=== PATIENT | female | born 1950 | race Caucasian/White ===

== ENCOUNTER 2017-12-14 19:58 | Inpatient (IN) | payer MEDICARE, OTHER ==
--- NOTE | 2017-12-14 20:37 | ED ---
Respiratory - HPI Summary HPI Summary: A 67 y/o F presents to ED transferred from [facility] for SOB onset three days ago. Associated sx: fever, chills, diaphoresis, decreased oral intake , CHRISTIANSON, nonproductive cough, TIM. She took Excedrin which relieved the TIM. Denies CP. Aggravating factors: lying down. Pt has recently travelled back to [place] from [place] by plane. - History of Current Complaint Chief Complaint: EDShortnessOfBreath Stated Complaint: SOB Time Seen by Provider: 12/14/17 20:31 Hx Obtained From: Patient, Family/Police Specialist Onset/Duration: Lasting Days, Still Present Timing: Constant Initial Severity: Mild Current Severity: Mild Pain Intensity: 3 Character: Cough (Nonproductive), Dyspnea on Exertion Sputum Amount: None Aggravating Factor(s): Recumbent Position Alleviating Factor(s): OTC Medications - re: TIM Associated Signs and Symptoms: Fever, Chills, Diaphoresis, Dyspnea - CHRISTIANSON - Allergy/Home Medications Allergies/Adverse Reactions: Allergies Allergy/AdvReac Type Severity Reaction Status Date / Time penicillin G Allergy Unknown Unknown Verified 12/15/17 00:51 Reaction Details Home Medications: Home Medications NK [No Home Medications Reported] 12/14/17 [History Confirmed 12/14/17] PMH/Surg Hx/FS Hx/Imm Hx Previously Healthy: Yes Cardiovascular History: Denies: Hx Congestive Heart Failure, Hx Myocardial Infarction Sensory History: Denies: Hx Deafness Opthamlomology History: Denies: Hx Legally Blind EENT History: Denies: Hx Deafness Infectious Disease History: No Infectious Disease History: Denies: Traveled Outside the in Last 30 Days - Family History Known Family History: Negative: Cardiac Disease - Social History Occupation: Retired Lives: With Family Hx Tobacco Use: No Review of Systems Positive: Fever, Chills, Skin Diaphoresis, Other - pos: decreased oral intake Eyes: Negative ENT: Negative Negative: Chest Pain Positive: Shortness Of Breath, Cough - non-productive, Other - CHRISTIANSON Gastrointestinal: Negative Positive: no symptoms reported Musculoskeletal: Negative Skin: Negative Positive: Headache Psychological: Normal All Other Systems Reviewed And Are Negative: No Physical Exam - Summary Physical Exam Summary: Appearance: Alert, conversive, nontoxic appearing Skin: Warm, dry, no mottling, no rashes, no contusions HEENT: EOMI, PERRL, moist mucous membranes Neck: No masses on the neck, supple Respiratory: Clear to auscultation, breath sounds present, no rales, no rhonchi , no wheezes. Dyspneic during interview; pt completes full sentences then stops and takes extra breaths. Cardiovascular: RRR, pulses are symmetrical in both lower and upper extremities. Very faint rub. Abdomen: Soft, non-tender Bowel Sounds: Present Musculoskeletal: No CVA tenderness, no obvious deformity, moving all extremities in a grossly normal manner Neurological: A&Ox3, CN II-XII Intact, moving all extremities symmetrically Psychiatric: Normal affect and mood Triage Information Reviewed: Yes Vital Signs On Initial Exam: Initial Vitals Temp Pulse Resp BP Pulse Ox 98.0 F 69 22 121/73 98 12/14/17 20:05 12/14/17 20:05 12/14/17 20:05 12/14/17 20:05 12/14/17 20:05 Vital Signs Reviewed: Yes Diagnostics - Vital Signs Vital Signs Temp Pulse Resp BP Pulse Ox 12/14/17 20:05 98.0 F 69 22 121/73 98 - Laboratory Result Diagrams: 12/15/17 06:00 12/14/17 21:17 Lab Statement: Any lab studies that have been ordered have been reviewed, and results considered in the medical decision making process. - Radiology CXR Xray Interpretation: Positive (See Comments) - Cardiomegaly. No PNA. Radiology Interpretation Completed By: ED Physician - EKG 2048 Cardiac Rate: NL - 70bpm EKG Rhythm: Sinus Rhythm ST Segment: Non-Specific - II, III, aVF, V4-V6 EKG Interpretation: Inverted T-waves in V2, V3. No electrical alternans. Re-Evaluation - Re-Evaluation 1 Re-Evaluation Time: 21:00 Change: Unchanged Comment: Discussing possibility of transfer with pt and . Second Eval Re-Evaluation Time: 23:35 - Discussed the pending admission with the pt. She reports that she is still short of breath. Disposition - Course Course Of Treatment: A 67 y/o F presents to ED transferred from [facility] for SOB onset three days ago. Associated sx: fever, chills, diaphoresis , decreased oral intake, CHRISTIANSON, nonproductive cough, TIM. Pt will be signed out to Dr. Ruiz at shift change pending work-up, recommended for admission. - Differential Dx - Cardiopulmonary Differential Diagnoses - Cardiopulmonary: Acute Dyspnea - Diagnoses Provider Diagnoses: Dyspnea, Pericardial effusion - Physician Notifications Discussed Care Of Patient With: Deyvi Berry - hospitalist Time Discussed With Above Provider: 20:50 Instructed by Provider To: Other - Recommends transfer for possible percardial effusion. On futhur consult, approx 2100, hospitalist is agreeing to admit pt once full work-up is complete. Discharge - Sign-Out/Discharge Documenting (check all that apply): Sign-Out Patient Signing out patient TO: Sim Ruiz - Discharge Plan Condition: Stable Disposition: ADMITTED TO [facility] - Billing Disposition and Condition Condition: STABLE Disposition: Admitted to [facility] - Attestation Statements Document Initiated by Scribe: Yes Documenting Scribe: Blanca Michael Provider For Whom Scribe is Documenting (Include Credential): Dr Josiane Restrepo MD Scribe Attestation: Roscoe, Blanca Michael , scribed for Dr Josiane Restrepo MD on 12/15/17 at 0635. Scribe Documentation Reviewed: Yes Provider Attestation: The documentation as recorded by the scribBlanca peres accurately reflects the service I personally performed and the decisions made by , Dr Josiane Restrepo MD
[2017-12-14 21:38] LABS: ABS Basophils 0.1 10^3/ul (0-0.2); ABS Eosinophils 0 10^3/ul (0-0.6); ABS Lymphocytes 1.3 10^3/ul (1.0-4.8); ABS Neutrophils 8.5 10^3/ul (1.5-7.7); ABS Nucleated RBC 0 10^3/ul; Eosinophil % 0.3 % (0-6); Hematocrit 32 % (35-47); Hemoglobin 10.6 g/dl (12.0-16.0); Lymphocyte % 11.8 % (25-47); Mean Corpuscular HGB Conc 33 g/dl (31-36); Mean Corpuscular Hemoglobin 26 pg (27-31); Mean Corpuscular Volume 79 fL (80-97); Mean Platelet Volume 7.6 um3 (7.4-10.4); Nucleated Red Blood Cells % 0; Platelet Count 456 10^3/ul (150-450); Red Blood Count 4.03 10^6/ul (4.00-5.40); Red Cell Distribution Width 13 % (10.5-15); White Blood Count 10.9 10^3/ul (3.5-10.8)
[2017-12-14 21:57] LABS: EGFR Non-African American 110.6 (>60)
--- NOTE | 2017-12-14 23:34 | ED ---
Progress - Progress Note Progress Note: 22:00- Pt received from Dr. Josiane Peace MD due to pending workup. 22:48 - Discussed the care of the pt with Dr. Lizzy Villanueva, clinical program consultant who recommended admitting.Discussed the care of the pt with Dr. Berry who agreed to admit the pt to the ICU. The pt will be admitted with a final Dx of pericardial effusion and dyspnea. Re-Evaluation - Re-Evaluation 1 Re-Evaluation Time: 21:00 Change: Unchanged Comment: Discussing possibility of transfer with pt and . Second Eval Re-Evaluation Time: 23:35 - Discussed the pending admission with the pt. She reports that she is still short of breath. Course/Dx - Course Course Of Treatment: A 67 y/o F presents to ED transferred from [facility] for SOB onset three days ago. Associated sx: fever, chills, diaphoresis , decreased oral intake, CHRISTIANSON, nonproductive cough, TIM. Pt will be signed out to Dr. Ruiz at shift change pending work-up, recommended for admission. - Diagnoses Provider Diagnoses: Dyspnea, Pericardial effusion - Provider Notifications Discussed Care Of Patient With: Rich Ball - Wax Specialist Time Discussed With Above Provider: 20:50 Instructed by Provider To: Other - Recommends transfer for possible percardial effusion. On futhur consult, approx 2100, hospitalist is agreeing to admit pt once full work-up is complete. Discharge - Sign-Out/Discharge Documenting (check all that apply): Patient Departure - Admit - Discharge Plan Condition: Stable Disposition: ADMITTED TO [facility] Referrals: No Primary Care Phys,NOPCP [Primary Care Provider] - Care [facility] [Outside] - Billing Disposition and Condition Condition: STABLE Disposition: Admitted to [facility] - Attestation Statements Document Initiated by Scribe: Yes Documenting Scribe: Shantell Rodriguez Provider For Whom Denice is Documenting (Include Credential): Dr. Sim Ruiz MD Scribe Attestation: Shantell Malhotra scribed for Dr. Sim Ruiz MD on 12/15/17 at 0019. Scribe Documentation Reviewed: Yes Provider Attestation: The documentation as recorded by the Shantell driscoll [place] accurately reflects the service I personally performed and the decisions made by me, Dr. Sim Ruiz MD
[2017-12-15] MEDS ORDERED: Ketorolac INJ* 30 MG/ML 1 ML VIAL IV ONE (00:24)
--- NOTE | 2017-12-15 00:26 | HP ---
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 She returned from a trip to [facility] this month and was exposed to her who had a mild upper respiratory syndrome ~1 week ago. Starting last Saturday, she began having a drt cough with increased fatigue, exertional SOB, F/C, sweats, and decreased appetite. The only chest discomfort she has had has been associated with her cough, similarly a mild sore throat. She presented to [place] ED where a CTA chest was performed and ruled out pulmonary embolism , but incidentally identified a moderate pericardial effusion. Coincidentally, she had been evaluated in [place], [place] on 10/18/2017 for chest pain and a CTA chest at that time had no evidence of pericardial effusion. Her vitals are reasonable without hypotension, tachycardia, or hypoxia. She is moderately SOB with speaking or movement. She does have ~3.5cm JVD at 60 degrees. Findings were discussed with Ta Gray MD cardiology who will evaluate her in the AM. In the meantime, she will be given IVFs, anti-inflammatory medication, supplemental oxygen, & monitored closely in the ICU. She is not on blood thinners. 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 Father passed at 75 2nd lung CA. Sister passed at 47 2nd primary liver CA. Brother is alive at 62 w / HX TIA. ROS: as above, otherwise reviewed and all were negative vitals: Vital Signs Temp 36.7 C 12/14/17 20:05 Pulse 84 12/15/17 00:37 Resp 24 12/15/17 00:37 BP 127/71 12/15/17 00:37 Pulse Ox 97 12/15/17 00:37 Intake & Output 12/14/17 12/14/17 12/15/17 11:59 23:59 11:59 Weight 72.575 kg Constitutional: NAD, normally developed, overweight white female HEENM: atraumatic; sclera/conjunctiva: anicteric/clear; blephara: normal; auricles: normal; hearing: clinically intact; oropharynx: clear, mucosa moist Neck: soft tissue: no nuchal rigidity; thyroid: normal Pulmonary: clear to auscultation bilaterally, good aeration, no accessory muscle use CV: RR/RR, normal S1S2, no carotid bruit, ~3.5cm jugular venous distention at 60 degrees, 2+ B DP/PT, no edema Abdominal: soft, non-distended, non-tender, no rebound/guarding/rigidity, normoactive bowel sounds, no hepatosplenomegaly or masses, no costovertebral angle tenderness Musculoskeletal: general: grossly intact, non-tender Integumental: normal appearance and texture of exposed skin Psychiatric orientation: AA&O to PPS affect: mildly anxious, objectively mildly SOB mood: pleasant, cooperative eye contact: good content: reliable responses: mildly slowed 2nd SOB/dyspnea insight: good Testing: Lab Results 12/14/17 12/14/17 12/14/17 Range/Units 21:17 21:17 21:17 WBC 10.9 H (3.5-10.8) 10^3/ul RBC 4.03 (4.00-5.40) 10^6/ul Hgb 10.6 L (12.0-16.0) g/dl Hct 32 L (35-47) % MCV 79 L (80-97) fL MCH 26 L (27-31) pg MCHC 33 (31-36) g/dl RDW 13 (10.5-15) % Plt Count 456 H (150-450) 10^3/ul MPV 7.6 (7.4-10.4) um3 Neut % (Auto) 78.3 (38-83) % Lymph % (Auto) 11.8 L (25-47) % [place] % (Auto) 8.8 H (0-7) % Eos % (Auto) 0.3 (0-6) % Baso % (Auto) 0.8 (0-2) % Absolute Neuts (auto) 8.5 H (1.5-7.7) 10^3/ul Absolute Lymphs (auto) 1.3 (1.0-4.8) 10^3/ul Absolute Monos (auto) 1.0 H (0-0.8) 10^3/ul Absolute Eos (auto) 0 (0-0.6) 10^3/ul Absolute Basos (auto) 0.1 (0-0.2) 10^3/ul Absolute Nucleated RBC 0 10^3/ul Nucleated RBC % 0 ESR 109 H (0-40) mm/Hr Sodium 138 (135-145) mmol/L Potassium 3.4 L (3.5-5.0) mmol/L Chloride 102 (101-111) mmol/L Carbon Dioxide 27 (22-32) mmol/L Anion Gap 9 (2-11) mmol/L BUN 7 (6-24) mg/dL Creatinine 0.55 (0.51-0.95) mg/dL Est GFR ( Amer) 133.8 (>60) Est GFR (Non-Af Amer) 110.6 (>60) BUN/Creatinine Ratio 12.7 (8-20) Glucose 120 H (70-100) mg/dL Calcium 9.1 (8.6-10.3) mg/dL Magnesium 2.3 (1.9-2.7) mg/dL Total Bilirubin 0.70 (0.2-1.0) mg/dL AST 31 (13-39) U/L ALT 56 H (7-52) U/L Alkaline Phosphatase 190 H (34-104) U/L Troponin I 0.01 (<0.04) ng/mL C-Reactive Protein 130.69 H (<8.01) mg/L B-Natriuretic Peptide 99 ( - 100) pg/mL Total Protein 7.2 (6.4-8.9) g/dL Albumin 3.8 (3.2-5.2) g/dL Globulin 3.4 (2-4) g/dL Albumin/Globulin Ratio 1.1 (1-3) TSH 4.53 (0.34-5.60) mcIU/mL ECG, personally reviewed: NSR rate 70, no ischemia, diffuse ST-T flattening, low voltage CXR, personally reviewed: no acute process Impression: 67F HX hiatal hernia presents with viral pericarditis, moderate pericardial effusion, & subacute cardiac tamponade Neurologic intact, no issues Cardiovascular viral pericarditis w/ symptomatic moderate subacute pericardial effusion : IV ketorolac 30mg x4 doses then convert to PO ibuprofen : Ta Gray MD cardiology consulted, will evaluate in AM : ECHO ordered for AM : supplemental oxygen : morphine & lorazepam PRN : supportive care Pulmonary moderate dyspnea 2nd above : Dr Gray aware Infectious Disease viral pericarditis as above Gastroenterology HX hiatal hernia IV pantoprazole for GI prophylaxis Renal no acute/chronic issues Admission Rational: Inpatient as without the above interventions the risk of impending adverse outcome is unacceptably high; inappropriate for the outpatient setting DVTp: SCDs, no anticoagulation 2nd potential for pericardiocentesis vs pericardial window Code Status: full HCP: Critical Care time: 50minutes with >50% spent at the bedside obtaining a history , performing the examination, advising of diagnosis & treatment options along with risks/benefits/reasoning; remainder spent discussing with ER MD, reviewing labs and radiology exams, documentation
[2017-12-15] MEDS ORDERED: LORazepam INJ* 2 MG/ML 1 ML VIAL IV PRN (00:28)
[2017-12-15] MEDS ORDERED: Acetaminophen TAB* 325 MG PO PRN (00:28)
[2017-12-15] MEDS ORDERED: Morphine VIAL* 4 MG/ML VIAL (1 ml vial) IV PRN (00:29)
[2017-12-15] MEDS ORDERED: NS 0.9% 1000 ML* 1,000 ML IV SCH (00:30)
[2017-12-15] MEDS ORDERED: Ondansetron ODT TAB* 4 MG PO PRN (00:30)
[2017-12-15] MEDS: Pantoprazole IV* 40 MG IV SCH ×2 (01:07→09:55)
[2017-12-15 06:12] LABS: ABS Basophils 0.1 10^3/ul (0-0.2); ABS Eosinophils 0.1 10^3/ul (0-0.6); ABS Lymphocytes 0.9 10^3/ul (1.0-4.8); ABS Monocytes 0.8 10^3/ul (0-0.8); ABS Neutrophils 6.1 10^3/ul (1.5-7.7); ABS Nucleated RBC 0 10^3/ul; Eosinophil % 1.1 % (0-6); Hematocrit 29 % (35-47); Hemoglobin 9.4 g/dl (12.0-16.0); Lymphocyte % 10.9 % (25-47); Mean Corpuscular HGB Conc 32 g/dl (31-36); Mean Corpuscular Hemoglobin 26 pg (27-31); Mean Corpuscular Volume 80 fL (80-97); Mean Platelet Volume 7.4 um3 (7.4-10.4); Nucleated Red Blood Cells % 0; Platelet Count 393 10^3/ul (150-450); Red Blood Count 3.62 10^6/ul (4.00-5.40); Red Cell Distribution Width 13 % (10.5-15); White Blood Count 7.9 10^3/ul (3.5-10.8)
[2017-12-15] MEDS ORDERED: Benzonatate CAP* 100 MG PO PRN (06:18)
[2017-12-15 06:20] LABS: INR 1.16 (0.77-1.02)
[2017-12-15 06:37] LABS: EGFR Non-African American 91.2 (>60)
--- NOTE | 2017-12-15 07:26 | RAD ---
HISTORY: dyspnea COMPARISONS: None VIEWS: 1: frontal AP view of the chest at 8:50 PM FINDINGS: LINES AND TUBES: None. CARDIOMEDIASTINAL SILHOUETTE: The cardiac silhouette is mildly enlarged. The cardiomediastinal silhouette is otherwise normal for portable technique. PLEURA: The costophrenic angles are sharp. No pleural abnormalities are noted. LUNG PARENCHYMA: The lungs are clear. ABDOMEN: The upper abdomen is clear. There is no subphrenic gas. BONES AND SOFT TISSUES: No bone or soft tissue abnormalities are noted. IMPRESSION: NO ACTIVE CARDIOPULMONARY DISEASE. R0
[2017-12-15] MEDS: Ketorolac INJ* 15 MG/ML 1 ML VIAL IV SCH ×3 (09:55→21:17)
--- NOTE | 2017-12-15 10:29 | ECHO ---
Patient: LARON LÓPEZ [facility] Rec#: [id number] : 1950 Date: 12/15/2017 Age: 67y Height: 160 cm / 63.0 in Weight: 72.6 kg / 160.0 lbs Sex: F BSA: 1.76 Room#: ICU 2 Admit Date#: 12/15/2017 Type: Inpatient Referring: Deyvi Berry MD Reading: Reyes Gray MD Devulcanizer Loader: Caty David RN RDCS Transthoracic Echocardiogram Indication: Pericardial Effusion BP: 103/62 HR: 64 Rhythm: NSR with PACs Findings History: Hiatal hernia Technical Comments: The study quality is fair. The study is technically limited due to patient body habitus. Left Ventricle: The left ventricular chamber size is normal. Septal wall hypertrophy is observed. Global left ventricular wall motion and contractility are within normal limits. There is normal left ventricular systolic function. The estimated ejection fraction is 60-65%. The assessment of diastolic function is non-diagnostic. Left Atrium: The left atrial chamber size is normal. Right Ventricle: The right ventricle wall thickness is mildly increased. The right ventricular cavity size is normal. The right ventricular global systolic function is normal. Right Atrium: The right atrium is mildly dilated. Aortic Valve: The aortic valve is trileaflet. The aortic valve leaflets are mildly thickened. There is no evidence of aortic regurgitation. There is no evidence of aortic stenosis. Mitral Valve: The mitral valve leaflets are mildly thickened. There is trace to mild mitral regurgitation. There is no evidence of mitral stenosis. Tricuspid Valve: The tricuspid valve leaflets are normal. There is mild to moderate tricuspid regurgitation. There is evidence of mild pulmonary hypertension. There is no tricuspid stenosis. Pulmonic Valve: The pulmonic valve appears normal. There is a trace pulmonic regurgitation. There is no pulmonic stenosis. Pericardium: There is a small pericardial effusion. There are no signs of significant hemodynamic compromise. There is a circumferential pericardial effusion. Aorta: There is no dilatation of the ascending aorta. There is no dilatation of the aortic arch. There is no dilation of the aortic root. Pulmonary Artery: The main pulmonary artery appears normal. Venous: The inferior vena cava appears normal in size. There is less than 50% respiratory change in the inferior vena cava dimension. Summary: There was not any prior study for comparison. Conclusions Global left ventricular wall motion and contractility are within normal limits. There is normal left ventricular systolic function. The estimated ejection fraction is 60-65%. The assessment of diastolic function is non-diagnostic. The right ventricular global systolic function is normal. There is no evidence of aortic stenosis. There is trace to mild mitral regurgitation. There is mild to moderate tricuspid regurgitation. There is evidence of mild pulmonary hypertension. There is a small pericardial effusion. There are no signs of significant hemodynamic compromise. There is a circumferential pericardial effusion. Measurements Name Value Normal Range RVIDd (AP) 2D 2.5 cm (0.9 - 2.6) RVDdMajor (2D) 3.5 cm (2.2 - 4.4) RVAW (2D) 0.7 cm (0.2 - 0.5) RAd ISD 4CH 5.6 cm (3.4 - 4.9) RA (A4C)W 4 cm (2.9 - 4.6) IVSd (2D) 1.1 cm (0.6 - 1) LVPWd (2D) 0.8 cm (0.6 - 1) LVIDd (2D) 4.8 cm (3.6 - 5.4) LVIDs (2D) 2.7 cm - LV FS (2D) 44 % (25 - 45) Aortic Annulus 2.2 cm (1.4 - 2.6) Ao root diameter (2D) 3 cm (2.1 - 3.5) Ascending Ao 3 cm (2.1 - 3.4) Aortic arch 2.3 cm (1.8 - 3.4) LA dimension (AP) 2D 3.7 cm (2.3 - 3.8) LAd ISD 4CH 5.3 cm (2.9 - 5.3) LA ISD 4CH W 4.5 cm (2.5 - 4.5) Name Value Normal Range LA ESV BP (A/L) index 33.9 ml/m2 - Name Value Normal Range MV E-wave Vmax 0.93 m/sec - MV deceleration time 176 msec - MV A-wave Vmax 0.7 m/sec - MV E:A ratio 1.3 ratio - LV septal e' Vmax 0.1 m/sec - LV lateral e' Vmax 0.07 m/sec - LV E:e' septal ratio 9.3 ratio - LV E:e' lateral ratio 13.3 ratio - Name Value Normal Range AV Vmax 1.4 m/sec - AV VTI 29.1 cm - AV peak gradient 8 mmHg - AV mean gradient 5 mmHg - LVOT Vmax 1.2 m/sec - LVOT VTI 23.8 cm - LVOT peak gradient 6 mmHg - LVOT mean gradient 3 mmHg - AISHA Vmax 0.61 m/sec - Name Value Normal Range TR Vmax 2.7 m/sec - TR peak gradient 29 mmHg - RAP 8 mmHg - RVSP 37 mmHg - IVC diameter 1.9 cm - Name Value Normal Range PV Vmax 0.68 m/sec -
[2017-12-15] MEDS ORDERED: Enoxaparin(*) 40 MG/0.4 ML SYR SUBCUT SCH (12:00)
[2017-12-15] MEDS ORDERED: Potassium Chlor TAB* 20 MEQ TAB.ER PO ONE (12:24)
--- NOTE | 2017-12-15 12:34 | PN ---
Subjective Date of Service: 12/15/17 Interval History: Pt is feeling a little better than when she initially presented to the ER but she continues to be dyspnic even with just talking (though she talks fast and for prolonged periods of time). She denies any CP. She states her has a similar URI as her-she has been coughing some but not bringing up any sputum. Objective Active Medications: Acetaminophen (Tylenol Tab*) 650 mg PO Q6H PRN PRN Reason: FEVER/PAIN Benzonatate (Tessalon Cap*) 200 mg PO TID PRN PRN Reason: COUGH Last Admin: 12/15/17 06:44 Dose: 200 mg Enoxaparin Sodium (Lovenox(*)) 40 mg SUBCUT Q24H TONO Ketorolac Tromethamine (Toradol Inj*) 30 mg IV Q6H TONO Stop: 12/15/17 19:31 Last Admin: 12/15/17 09:55 Dose: 30 mg Lorazepam (Ativan Inj*) 0.5 mg IV Q6H PRN PRN Reason: ANXIETY Morphine Sulfate (Morphine Vial*) 2 mg IV Q2H PRN PRN Reason: pain/SOB Last Admin: 12/15/17 02:31 Dose: 2 mg Ondansetron HCl (Zofran Odt Tab*) 4 mg PO Q6H PRN PRN Reason: n/v Potassium Chloride (Klor Con Er Tab*) 40 meq PO ONCE ONE Stop: 12/15/17 12:25 Vital Signs - 8 hr 12/15/17 12/15/17 12/15/17 05:00 06:00 07:00 Temperature Pulse Rate 67 72 66 Respiratory 18 22 12 Rate Blood Pressure 99/61 103/62 103/63 (mmHg) O2 Sat by Pulse 99 100 100 Oximetry 12/15/17 12/15/17 12/15/17 08:00 09:00 09:08 Temperature 98.7 F Pulse Rate 68 75 Respiratory 22 14 21 Rate Blood Pressure 108/66 112/62 (mmHg) O2 Sat by Pulse 99 100 Oximetry 12/15/17 12/15/17 12/15/17 10:00 11:00 11:02 Temperature Pulse Rate 77 74 71 Respiratory 21 22 12 Rate Blood Pressure 97/71 88/53 (mmHg) O2 Sat by Pulse 100 97 100 Oximetry 0912/15/17 12/15/17 11:44 12:00 12:01 Temperature 99.6 F Pulse Rate 79 80 Respiratory 25 20 Rate Blood Pressure 103/62 (mmHg) O2 Sat by Pulse 97 98 Oximetry Oxygen Devices in Use Now: None Appearance: Middle aged female sitting up in bed, NAD Eyes: No Scleral Icterus Ears/Nose/Mouth/Throat: Mucous Membranes Moist Respiratory: Symmetrical Chest Expansion and Respiratory Effort, Clear to Auscultation Cardiovascular: NL Sounds; No Murmurs; No JVD, RRR, No Edema Abdominal: NL Sounds; No Tenderness; No Distention Extremities: No Clubbing, Cyanosis Skin: No Nodules or Sclerosis Neurological: Alert and Oriented x 3 Result Diagrams: 12/15/17 06:00 12/15/17 06:00 Microbiology and Other Data: Microbiology 12/15/17 01:00 Nasal Screen MRSA (PCR) - Final Nasal Mrsa Not Detected Assess/Plan/Problems-Billing Ms Manjarrez is a 67 yo F who has no significant PMHx who presented to the ER at [facility] with c/o significant dyspnea with minimal exertion (ie talking ) and was found to have a pericardial effusion on CT scan and was sent to [facility] [place] [place] for evaluation of her effusion and treatment for pericarditis. - Patient Problems (1) Pericarditis Current Visit: Yes Status: Acute Code(s): I31.9 - DISEASE OF PERICARDIUM, UNSPECIFIED SNOMED Code(s): 4553803 Comment: Continue ketorolac for probable viral pericarditis. No evidence of a hemodynamically significant effusion. Will be getting a repeat echo tomorrow to re-evaluate the effusion. The patient is significantly dyspnic even at rest just talking. I suspect her dyspnea is multifactorial from a viral URI and the small pericardial effusion. At this time she is saturating 100% on RA. Will transfer to for further monitoring overnight. If she is stable or improving tomorrow she can likely be discharged to go back home to [place]. (2) Viral URI Current Visit: Yes Status: Acute Code(s): J06.9 - ACUTE UPPER RESPIRATORY INFECTION, UNSPECIFIED SNOMED Code(s): 540674938 Comment: Continue supportive care. The patient had a nebulizer treatment at [facility] without any improvement in her symptoms and she states she did not feel well after. Will hold off on any nebs as there is no wheezing or tightness. (3) DVT prophylaxis Current Visit: Yes Status: Acute Code(s): AOT5303 - SNOMED Code(s): 877870921 Comment: start lovenox (4) Full code status Current Visit: Yes Status: Acute Code(s): Z78.9 - OTHER SPECIFIED HEALTH STATUS SNOMED Code(s): 152062208
[2017-12-15] MEDS: guaiFENesin/CODIEN 100MG-10MG* 5 ML UDC PO PRN ×2 (14:57→21:17)
--- NOTE | 2017-12-15 20:58 | CONS ---
CARDIOLOGY CONSULTATION: DATE OF CONSULT: 12/15/17 INDICATION FOR CONSULTATION: Pericardial effusion. HISTORY OF PRESENT ILLNESS: The patient is a 67-year-old female with a very little past medical history who came to [facility] because of shortness of breath. The patient was in [place] earlier this month on a cruise. She came from [place], [place] this weekend and was on vacation. The patient became severely shortness of breath with mild dry cough. The patient states that her had a mild viral syndrome a week earlier. The patient denied any lightheadedness, dizziness, or syncope. She denied any true anginal-type symptoms. At [facility], the patient had a CAT scan of her chest, which showed moderate-sized pericardial effusion, no evidence of pneumonia, no evidence of pulmonary embolism. She was transferred to [facility]. This morning, the patient continues to have dyspnea just with conversation. She denies any chest pain. She denies any fevers or chills. The patient had an echocardiogram this morning, which showed normal LV size and systolic function, normal valves. She has a small to moderate-sized circumferential pericardial effusion. No evidence of hemodynamic compromise. PAST MEDICAL HISTORY: Significant for hiatal hernia. PAST SURGICAL HISTORY: Hysterectomy in the past. MEDICATIONS: No outpatient medications. ALLERGIES: No known drug allergies. SOCIAL HISTORY: She denies tobacco use. She denies recreational drug use. She is a retired nurse. She lives with her . FAMILY HISTORY: Mother at 83 of organ failure. Father at 75 due to lung cancer. REVIEW OF SYSTEMS: Negative for fevers or chills. Negative for changes in bowel or bladder habits. Negative for changes in weight. Positive for dyspnea. Other 12-point review is unremarkable. PHYSICAL EXAM: Height is 5 feet 3 inches, weight is 168 pounds, temperature is 99, heart rate is 71, blood pressure 90/53, respiratory rate is 22, oxygen saturation 100% on room air. Sclerae anicteric. Oropharynx is pink without erythema. Carotids are 2+ without bruits. JVD is normal. Thyroid is normal. Cardiac Exam: S1, S2 with an S3 gallop. No murmurs or rubs. Lungs are clear to auscultation bilaterally. There is no dullness to percussion. Abdomen is soft, nontender, nondistended with normoactive bowel sounds. Extremities show no edema. She has 2+ pulses throughout. The patient is awake and alert and oriented. She moves all 4 extremities equally. I personally did a pulsus paradoxus and the inspiratory and expiratory difference was less than 10 mmHg. IMPRESSION AND PLAN: This is a 67-year-old female who was admitted to the hospital with severe dyspnea, likely secondary to a viral syndrome. Her CAT scan at [facility] showed a moderate-size pericardial effusion. Her scan itself showed no pulmonary embolism and no evidence of pneumonia. Again, her echocardiogram today demonstrated normal LV size and systolic function, normal valves and small to moderate pericardial effusion, no evidence of hemodynamic compromise. For now, my recommendation is continue with supportive care with this patient. I do not think she needs antibiotics. I do not think she needs a pericardiocentesis or pericardial window. The patient will be followed overnight. A repeat echocardiogram will be done tomorrow. Case was discussed with Dr. Myrtle Zambrano. [id number]/[facility] #: [id number] [place]
[2017-12-16 06:12] LABS: Hematocrit 30 % (35-47); Hemoglobin 9.4 g/dl (12.0-16.0); Mean Corpuscular HGB Conc 32 g/dl (31-36); Mean Corpuscular Hemoglobin 26 pg (27-31); Mean Corpuscular Volume 81 fL (80-97); Mean Platelet Volume 7.4 um3 (7.4-10.4); Platelet Count 401 10^3/ul (150-450); Red Blood Count 3.67 10^6/ul (4.00-5.40); Red Cell Distribution Width 13 % (10.5-15); White Blood Count 6.3 10^3/ul (3.5-10.8)
[2017-12-16 06:31] LABS: EGFR Non-African American 94.5 (>60)
[2017-12-16 08:41] VITALS: BP 112/69
--- NOTE | 2017-12-17 06:52 | DS ---
DISCHARGE SUMMARY: DATE OF ADMISSION: DATE OF DISCHARGE: 12/16/17 HOSPITAL COURSE: This 67-year-old woman developed shortness of breath about 3 days before admission. It got worse. She was found to have pericardial effusion. She had an echocardiogram showing almita l ejection fraction, but a circumferential pericardial effusion. She was seen in consultation by Dr. Gray. There was no evidence of hemodynamic compromise. He recommended symptomatic treatment. Echo cardiogram on the day of discharge showed a slight decrease in the pericardial effusion. Clinically, she was quite stable possibly starting to improve. She does not require any significant amount of a nalgesic medication. She was mainly bothered by a cough and dyspnea on exertion. None of the medica tions we gave her for cough seemed to have much effect. It is a dry cough. The patient was advised to arrange for a cardiology consultation later this week. She was advised nicanor t she would need a follow up echocardiogram in about 2 weeks. EKG showed nonspecific T-wave abnormalities. FINAL DIAGNOSIS: Pericarditis of uncertain etiology. DISCHARGE MEDICATIONS: Acetaminophen 650 mg every 6 hours p.r.n. DISCHARGE CONDITION: Stable. DISCHARGE DISPOSITION: Home. [id number]/[facility] #: [id number]
== END 2017-12-16 13:00 | disposition home or self-care (01) | DRG 316 ==
LOC: ED 19:58 → ICU 12-15 00:07 → MEDTELE 12-15 12:19
PROVIDERS: ADMIT Hospitalist; ATTEND Internal Medicine
DX: I31.9 Disease of pericardium, unspecified (principal); E66.3 Overweight; I31.4 Cardiac tamponade; I31.3 Pericardial effusion (noninflammatory); I10 Essential (primary) hypertension; J06.9 Acute upper respiratory infection, unspecified; K44.9 Diaphragmatic hernia without obstruction or gangrene; Z90.710 Acquired absence of both cervix and uterus; Z72.89 Other problems related to lifestyle; Z82.3 Family history of stroke; Z80.1 Family history of malignant neoplasm of trachea, bronchus and lung; Z80.0 Family history of malignant neoplasm of digestive organs; Z88.1 Allergy status to other antibiotic agents; Z68.29 Body mass index [BMI] 29.0-29.9, adult
CPT/HCPCS: 36415; 71045; 80048; 80053; 83735; 83880; 84443; 84484; 85025; 85027; 85610; 85652; 85730; 86140; 87040; 87641; 93005; 93306; 93308; 96374; 99285; A9270-GY; J1650; J1885; J2270